=== PATIENT | female | born 1985 | race Caucasian/White ===

== ENCOUNTER 2022-01-17 03:33 | Emergency (ER) | payer SELFPAY ==
[2022-01-17 04:02] LABS: Hemoglobin 14.2 g/dL (12.0-16.0); Mean Corpuscular HGB CONC 33.9 g/dL (32.0-36.0); Mean Corpuscular Hemoglobin 35.8 pg (27.0-31.0); Mean Platelet Volume 7.6 fL (7.4-10.4); Platelet Count 158 thou/uL (130-400); RBC Distribution Width 12.3 % (11.5-14.5); Red Blood Cell (RBC) Count 3.98 mill/uL (4.20-5.40); White Blood Cell (WBC) Count 10.9 thou/uL (4.8-10.8)
[2022-01-17 04:15] LABS: Pregnancy Test - Urine (BHCG) Negative (Negative); Pregu Control Background? CLEAR/WHITE (CLR/WHITE); Pregu Control Bar Appear? YES (CONTROL BAR)
[2022-01-17 04:16] LABS: Specific Gravity 1.026 (1.002-1.036)
[2022-01-17 04:19] LABS: #Basophils 0.1 thou/uL (0.0-0.2); #Eosinphils 0.1 thou/uL (0.0-0.7); #Lymphocytes 2.8 thou/uL (1.20-3.40); #Monocytes 0.5 thou/uL (0.11-0.59); #Neutrophils 7.4 thou/uL (1.40-6.50); %Basophils 1.2 % (0.0-1.0); %Eosinophils 1.1 % (0.0-10.0); %Lymphocytes 25.9 % (21.0-51.0); %Monocytes 4.3 % (0.0-10.0); %Neutrophils 67.4 % (42.0-75.0); MDiff Complete? YES; Macrocytosis MODERATE=16-30 cells (100X) (0-5/hpf); Ovalocytes SLIGHT = 2-5 cells (100X) (0-1/hpf); Platelet Morphology Comment Appears Adequate
[2022-01-17 04:22] LABS: Amphetamine Not Detected (NotDetected); Barbiturates Screen Not Detected (NotDetected); Benzodiazepine Screen Not Detected (NotDetected); Cocaine Metabolite Screen Not Detected (NotDetected); Methadone Not Detected (NotDetected); Methamphetamine Not Detected (NotDetected); Opiate Screen Not Detected (NotDetected); Oxycodone Screen Not Detected (NotDetected); Phencyclidine (PCP) Not Detected (NotDetected); THC/Cannabinoid Screen Detected (NotDetected); Tricyclic Screen Not Detected (NotDetected)
[2022-01-17] MEDS ORDERED: Lorazepam 2 MG/ML VIAL ONE (04:22)
[2022-01-17 04:23] LABS: Bilirubin Negative (Negative); Blood, Urine 1+ (Negative); Clarity Clear (Clear); Glucose, Urine (Dipstick) Normal (Negative); Ketone, Urine 80 mg/dL (Negative); Leukocyte Negative Leu/uL (Negative); Nitrite Negative (Negative); Protein, Urine (Dipstick) 100 mg/dL (Neg-Trace); Specific Gravity, Urine 1.026 (1.002-1.036); Urobilinogen Normal mg/dL (Less than 2); pH, Urine 6.5 (5.0-9.0)
[2022-01-17 04:24] LABS: ALT (SGPT) 42 U/L (8-55); AST (SGOT) 91 U/L (5-34); Albumin 4.6 g/dL (3.5-5.0); Alkaline Phosphatase 85 U/L (40-110); Anion Gap 24 mmol/L (10-20); BUN (Urea Nitrogen) 12 mg/dL (7.0-18.7); Bilirubin, Total 1.3 mg/dL (0.2-1.2); Calc. Creatinine Clearance 0 mL/min (70-130); Calcium 9.4 mg/dL (7.8-10.44); Carbon Dioxide 16 mmol/L (22-29); Chloride 100 mmol/L (98-107); Estimated GFR 85; Globulin 3.3 g/dL (2.4-3.5); Glucose 80 mg/dL (70-105); Potassium 3.6 mmol/L (3.5-5.1); Protein, Total 7.9 g/dL (6.0-8.3); Sodium 136 mmol/L (136-145)
[2022-01-17 04:42] LABS: Bacteria/HPF None Seen HPF (None Seen); RBC/HPF 0-3 HPF (0-3); Squamous Epithelial 0-3 HPF (0-3); WBC/HPF 0-3 HPF (0-3)
[2022-01-17] MEDS ORDERED: levETIRAcetam 500 MG/5 ML VIAL ONE (05:05)
== END 2022-01-17 05:52 | disposition home or self-care (01) ==
LOC: ERS 03:33
DX: R56.9 Unspecified convulsions (principal)
CPT/HCPCS: 80053; 80177; 80306; 80307; 81003; 81015; 81025; 84146; 85025; 93005; 96365; 96375; 96376; J1953; J2060

== ENCOUNTER 2022-03-09 18:00 | Emergency (ER) | payer SELFPAY ==
[2022-03-09] MEDS ORDERED: Ketorolac Tromethamine 30 MG/ML VIAL ONE (19:00)
[2022-03-09] MEDS ORDERED: FENTANYL 50 MCG/ML 1 ML VIAL ONE (19:00)
== END 2022-03-09 19:55 | disposition home or self-care (01) ==
LOC: ERS 18:00
DX: S63.501A Unspecified sprain of right wrist, initial encounter (principal); S40.011A Contusion of right shoulder, initial encounter; W06.XXXA Fall from bed, initial encounter
CPT/HCPCS: 96372; J1885; J3010

== ENCOUNTER 2023-01-19 08:34 | Emergency (ER) | payer MEDICAID, SELFPAY ==
[2023-01-19] MEDS ORDERED: Ondansetron PF 4 MG/2 ML Vial ONE (09:32)
[2023-01-19] MEDS ORDERED: chlordiazePOXIDE HCl 25 MG CAP ONE ×2 (09:32→09:36)
[2023-01-19 09:55] LABS: ALT (SGPT) 124 U/L (8-55); AST (SGOT) 367 U/L (5-34); Albumin 4.5 g/dL (3.5-5.0); Alkaline Phosphatase 138 U/L (40-110); Anion Gap 25 mmol/L (10-20); BUN (Urea Nitrogen) 12 mg/dL (7.0-18.7); Bilirubin, Total 2.2 mg/dL (0.2-1.2); Calc. Creatinine Clearance 0 mL/min (70-130); Carbon Dioxide 28 mmol/L (22-29); Chloride 86 mmol/L (98-107); Estimated GFR 89; Globulin 3.6 g/dL (2.4-3.5); Glucose 89 mg/dL (70-105); Potassium 3.3 mmol/L (3.5-5.1); Protein, Total 8.1 g/dL (6.0-8.3); Sodium 136 mmol/L (136-145)
[2023-01-19 10:05] LABS: Acetaminophen Less than 10 mcg/mL (10.0-30.0); Alcohol Less than 10.0 mg/dL (Less than 10); Salicylate Less than 8.0 mg/dL (15.0-30.0)
[2023-01-19 10:08] LABS: BHCG - Serum Negative (NEGATIVE); Pregs Control Background? CLEAR/WHITE (CLR/WHITE); Pregs Control Bar Appear? YES (CONTROL BAR)
[2023-01-19 10:27] LABS: #Basophils 0.1 thou/uL (0.0-0.2); #Monocytes 0.8 thou/uL (0.11-0.59); #Neutrophils 5.4 thou/uL (1.40-6.50); %Basophils 0.7 % (0.0-1.0); %Lymphocytes 15.4 % (21.0-51.0); %Monocytes 10.3 % (0.0-10.0); %Neutrophils 73.3 % (42.0-75.0); Hematocrit 38.6 % (36.0-47.0); Mean Corpuscular HGB CONC 36.3 g/dL (32.0-36.0); Mean Corpuscular Hemoglobin 37.3 pg (27.0-31.0); Mean Corpuscular Volume 102.9 fl (78.0-98.0); Mean Platelet Volume 12.4 fL (7.4-10.4); RBC Distribution Width 12.2 % (11.5-14.5); Red Blood Cell (RBC) Count 3.75 mill/uL (4.20-5.40); White Blood Cell (WBC) Count 7.4 10x3/uL (4.8-10.8)
[2023-01-19 10:42] LABS: Platelet Count 64 10x3/uL (130-400)
[2023-01-19] MEDS ORDERED: Promethazine HCl 25 MG in Sodium Chloride 0.9% 50 ML IVPB SCH (11:00)
[2023-01-19] MEDS ORDERED: Iopamidol-370 76% 500 ML MDV (1 ML CHARGE) ONE (11:07)
[2023-01-19 11:14] LABS: CellaVision Operator ID LAB.GE; Macrocytosis SLIGHT = 6-15 cells HPF (0-5); Platelet Adequacy Comment Platelets Decreased; Polychromasia SLIGHT = 2-3 cells HPF (0-2)
== END 2023-01-19 12:51 | disposition home or self-care (01) ==
LOC: ERS 08:34
DX: F10.239 Alcohol dependence with withdrawal, unspecified (principal); G40.409 Other generalized epilepsy and epileptic syndromes, not intractable, without status epilepticus; F17.210 Nicotine dependence, cigarettes, uncomplicated; Z79.899 Other long term (current) drug therapy
CPT/HCPCS: 36415; 74177; 80053; 80307; 84703; 85025; 93005; 96361; 96365; 96375; J2405; J2550; Q9967